=== PATIENT | male | born 1955 | race Caucasian/White ===

== ENCOUNTER → 2017-12-04 | Outpatient (CLI) | payer SELFPAY | END | disposition home or self-care (01) | LOC: RAD 16:14 | DX: N13.2 Hydronephrosis with renal and ureteral calculous obstruction (principal); N20.0 Calculus of kidney; N28.1 Cyst of kidney, acquired; N40.0 Benign prostatic hyperplasia without lower urinary tract symptoms; M89.9 Disorder of bone, unspecified; R31.9 Hematuria, unspecified; Z87.442 Personal history of urinary calculi | CPT/HCPCS: 74176 ==